=== PATIENT | male | born 1990 | race Hispanic/Latino ===

== ENCOUNTER 2021-01-18 13:37 | Emergency (ER) | payer MEDICARE ==
[~2021-01-18] VITALS: Ht 188 cm; Wt 147.4 kg
[2021-01-18] MEDS ORDERED: KETOROLAC 30MG VIAL (30MG/ML) ONE (14:24)
[2021-01-18] MEDS ORDERED: KETOROLAC 30MG VIAL (30MG/ML) IM ONE (14:30)
[2021-01-18 14:55] VITALS: BP 155/99
[2021-01-18] MEDS ORDERED: IBUP-2070 PO (15:01)
[2021-01-18] MEDS ORDERED: CYCL5TAB PO (15:01)
== END 2021-01-18 15:18 | disposition home or self-care (01) ==
LOC: EDH 13:37
DX: S50.01XA Contusion of right elbow, initial encounter (principal); F17.200 Nicotine dependence, unspecified, uncomplicated; Z79.1 Long term (current) use of non-steroidal anti-inflammatories (NSAID); W18.39XA Other fall on same level, initial encounter; Y93.89 Activity, other specified; Y92.89 Other specified places as the place of occurrence of the external cause; Y99.8 Other external cause status
CPT/HCPCS: 73070; 96372; 99284; J1885